=== PATIENT | female | born 1945 | race African-American/Black ===

== ENCOUNTER → 2019-05-30 | Outpatient (CLI) | payer MEDICARE ==
--- NOTE | 2019-06-01 17:33 | BD ---
EXAMINATION TYPE: Axial Bone Density DATE OF EXAM: 05/30/2019 COMPARISON: NONE CLINICAL HISTORY: Height: 59 IN Weight: 92 LBS FRAX RISK QUESTIONS: Secondary Osteoporosis: Current Tobacco Use: YES RISK FACTORS HISTORY OF: Family History of Osteoporosis: YES MOTHER AND (M) GRANDMOTHER Active: MODERATE Postmenopausal woman: YES HYST AGE 53 Take estrogen and/or progesterone medications: YES SINCE AGE 53 MEDICATIONS: Additional Medications: ESTROGEN, XANAX EXAM MEASUREMENTS: Bone mineral densitometry was performed using the [employer] System. Bone mineral density as measured about the Lumbar spine is: ----- L1-L4(G/cm2): 0.849 T Score Values are as follows: ----- L2: -2.4 ----- L3: -2.5 ----- L4: -4.1 ----- L1-L4: -2.8 Bone mineral density BASELINE Bone mineral density about the R hip (g/cm2): 0.567 Bone mineral density about the L hip (g/cm2): 0.611 T Score values are as follows: -----R Neck: -3.4 -----L Neck: -3.1 -----R Total: -2.9 -----L Total: -2.8 Bone mineral density BASELINE IMPRESSION: Osteoporosis (T Score less than -2.5). There is increased fracture risk and therapy is usually indicated based on age. Re-Screen 1-2 years. NOTE: T-SCORE=SD OF THE YOUNG ADULT MEAN.
== END | disposition home or self-care (01) ==
LOC: RADBDWWP 12:52
PROVIDERS: ATTEND Family Medicine
DX: M81.0 Age-related osteoporosis without current pathological fracture (principal)
CPT/HCPCS: 77080